=== PATIENT | female | born 1995 | race Two or more races ===

== ENCOUNTER 2019-01-28 05:33 | Emergency (ER) | payer MEDICAID, OTHER ==
[~2019-01-28] VITALS: Ht 160 cm; Wt 54.4 kg
[2019-01-28] MEDS ORDERED: SODIUM CHLORIDE 0.9% 1,000 ML IV ONE ×2 (05:37)
[2019-01-28] MEDS ORDERED: LORazepam 2MG/ML-1ML VIAL IV ONE (05:45)
[2019-01-28 05:46] VITALS: BP 110/64
[2019-01-28 06:37] LABS: Urine Bacteria NONE SEEN /hpf (None Seen); Urine Blood 3+ /uL (Negative); Urine Hyaline Cast MANY /lpf (0 - 2); Urine Mucus FEW (None Seen); Urine WBC 10 /hpf (0 - 5)
[2019-01-28 06:49] LABS: Alcohol, Urine < 3.0 mg/dL (0-5); Amphetamine Screen, Urine POSITIVE (NEGATIVE); Barbiturate Scree,Urine NEGATIVE (NEGATIVE); Benzodiazephine Screen, Urine NEGATIVE (NEGATIVE); Cannabinoid Screen, Urine POSITIVE (NEGATIVE); Cocaine Screen, Urine NEGATIVE (NEGATIVE); Opiate Scree,Urine NEGATIVE (NEGATIVE); Phencyclidine Screen, Urine NEGATIVE (NEGATIVE)
== END 2019-01-28 07:24 | disposition home or self-care (01) ==
LOC: ER 05:38
DX: R00.0 Tachycardia, unspecified (principal); F15.10 Other stimulant abuse, uncomplicated; Z53.29 Procedure and treatment not carried out because of patient's decision for other reasons; Z90.49 Acquired absence of other specified parts of digestive tract
CPT/HCPCS: 80307; 81001; 81025